=== PATIENT | female | born 1980 | race Two or more races ===

== ENCOUNTER → 2024-10-04 | Outpatient (CLI) | payer MEDICAID, SELFPAY ==
--- NOTE | 2024-10-04 09:00 | XR_ITS ---
Examination: Breast ultrasound, unilateral, left complete Date and time of exam: October 04, 2024 0858 hours INDICATIONS: Outside mammogram April 20, 2022 2 cm mass upper outer left breast 15 mm mass upper outer left breast Technique: Real-time paredes scale ultrasonographic imaging performed left breast including all 4 quadrants as well as nipple retroareolar and axillary region. Findings: 12:00 nodule lobular margins 21 x 21 mm 1:00 nodule circumscribed 11 x 9 mm 2:00 nodule circumscribed 8 x 8 mm 2:00 nodule lobular margins 19 x 27 mm IMPRESSION: BI-RADS Category 3: Probably benign findings 3-6 month follow-up left breast sonography strongly recommended to document stability of multiple solid nodules described above
--- NOTE | 2024-10-04 09:30 | XR_ITS ---
Examination: Diagnostic digital mammography, unilateral, left Computer aided detection 3-D breast Tomosynthesis, unilateral Date and time of exam: 10/04/2024 at 0914 hours INDICATIONS: Outside mammogram July 24, 2022 no suspicious masses, mammogram April 20, 2022 20 mm mass upper outer quadrant left breast Technique: Nonmagnified MLO, CC views of the left breast have been obtained, reconstructed from 3-D Tomosynthesis images. R2 computer aided detection program utilized for evaluation of suspicious masses and/or abnormal calcifications. 3-D Tomosynthesis images obtained. Findings: The breast is heterogeneously dense, which may obscure small masses 1:00 nodule 12 mm partially partially circumscribed Multiple left breast nodules 12:00, 1:00, 2:00 on ultrasound study today Impression: BI-RADS category 3: Probably benign findings One additional 6 month left mammogram and left breast sonogram follow-up needed
== END | disposition home or self-care (01) ==
PROVIDERS: PCP Physician Assistant; Referring Provider Physician Assistant; Visit Provider Physician Assistant
DX: R92.332 Mammographic heterogeneous density, left breast (principal); N63.25 Unspecified lump in the left breast, overlapping quadrants; N63.21 Unspecified lump in the left breast, upper outer quadrant
CPT/HCPCS: 76641; 77061; 77065; G0279